=== PATIENT | female | born 1995 | race Caucasian/White ===

== ENCOUNTER 2023-07-12 13:00 | Outpatient (REF) | payer MEDICARE, MEDICAID, SELFPAY ==
[2023-07-12 21:20] LABS: HCT 43.4 % (36.0-46.0); MCH 27.7 pg (27.0-33.0); MCHC 32.3 % (32.0-36.0); MCV 86 fL (80-95); MPV 9.4 fL (8.0-11.0); Platelet Count 419 10^3/uL (130-400); RBC 5.06 10^6/uL (3.93-5.22); RDW 16.1 % (11.7-14.6); RDW-SD 50.3 fL; WBC 10.62 10^3/uL (4.4-10.8)
[2023-07-12 21:49] LABS: TSH (W/Ref FT4) 1.89 uIU/mL (0.36-3.74)
[2023-07-12 22:19] LABS: Folate 3.8 ng/mL (8.6-20.0)
[2023-07-13 19:16] LABS: Hepatitis C Ab w Rflx HCV PCR Negative (Negative)
[2023-07-13 19:20] LABS: HIV-1/2 Ag & Ab Screen Negative (Negative)
[2023-07-13 19:22] LABS: Hep B Core Antibody Negative (Negative)
== END 2023-07-12 13:01 | disposition home or self-care (01) ==
LOC: NCHCN 13:00
PROVIDERS: Visit Provider Nurse Practitioner Family
DX: R20.2 Paresthesia of skin (principal); Z11.4 Encounter for screening for human immunodeficiency virus [HIV]; Z11.59 Encounter for screening for other viral diseases; Z01.84 Encounter for antibody response examination
CPT/HCPCS: 85027; 86704; 86803; 87389; 82746; 84443